=== PATIENT | male | born 1955 | race Caucasian/White ===

== ENCOUNTER 2022-11-03 14:51 | Emergency (ER) | payer BC, MEDICARE ==
[2022-11-03] MEDS ORDERED: Sodium Chloride 0.45% 1,000 ML IV SCH (17:00)
== END 2022-11-03 18:36 | disposition home or self-care (01) ==
LOC: JD.ED 14:51
DX: E87.5 Hyperkalemia (principal)
CPT/HCPCS: 36415; 80053; 84484; 85025; 93005; 96360; 99285; J7030; 93010; 99284

== ENCOUNTER 2023-04-22 15:54 | Emergency (ER) | payer MEDICARE, BC | END 2023-04-22 18:30 | disposition home or self-care (01) | LOC: JD.ED 15:54 | DX: M25.512 Pain in left shoulder (principal); I50.9 Heart failure, unspecified | CPT/HCPCS: 73030-26-LT; 73030-LT; 99283 ==